=== PATIENT | male | born 1950 | race Caucasian/White ===

== ENCOUNTER 2018-05-23 14:10 | Observation (INO) | payer MEDICARE, BC ==
[~2018-05-23] VITALS: Ht 182.9 cm; Wt 81.0 kg
[~2018-05-23 14:10] MED LIST: BACTRIM DS1 TAB PO; BENAZEPRIL10 MG PO; CEPHALEXIN500 MG PO; DELTASONE20 MG PO; DEPO-MEDROL40 MG/ML IJ; EPITOL200 MG OR; FUROSEMIDE20 MG PO; HYDROCHLOROT25 MG PO; INVEGA1.5 MG OR; LEVAQUIN750 MG PO; LEVOFLOXACIN750 MG PO; LEVOTHYROXIN100 MCG OR; LEVOTHYROXIN100 MCG PO; LEVOTHYROXIN125 MCG PO; LEVOTHYROXIN150 MCG PO; LEVOTHYROXIN200 MC2 PO; LEVOTHYROXIN25 MC1 PO; LISINOP/HCTZ1 TA1 OR; LISINOPRIL10 MG PO; MEDDOSEPAK PO; METOPROLOL TART50 MG PO; POTASSIUM CHLO10 MEQ PO; PREDNISONE20 MG PO; PREDNISONE5 MG PO; SERAQUIL; VANCOMYCIN HCL1 GM IV
[2018-05-23] MEDS ORDERED: FUROSEMIDE40 MG PO (14:28)
[2018-05-23] MEDS ORDERED: TEMAZEPAM15 MG PO (14:29)
[2018-05-23] MEDS ORDERED: LOPRESSOR 550 MG/TAB PO (14:29)
[2018-05-23] MEDS ORDERED: LISINOPRIL20 MG PO (14:30)
[2018-05-23] MEDS ORDERED: TAMSULOSIN HCL0.4 MG PO (14:31)
[2018-05-23] MEDS ORDERED: LEVOTHYROXIN100 MCG PO (14:31)
[2018-05-23 15:12] LABS: HEMOGLOBIN 14.5 g/dl (14.0-18.0); IMMATURE GRANULOCYTES 0.4 % (0.0-5.0); MEAN CELL VOLUME 91.7 fL CALC (80.0-100.0); MEAN CORPUSCULAR HGB 30.9 pG CALC (26.0-32.0); MEAN CORPUSCULAR HGB CONC 33.7 g/L CALC (32.0-36.0); NEUT# 6.31 thou/uL (1.82-7.42); RED BLOOD COUNT 4.69 mill/uL (4.70-6.10)
[2018-05-23 15:24] LABS: ALBUMIN 4.3 g/dL (3.2-5.0); ALKALINE PHOSPHATASE 91 u/l (38-126); ANION GAP 14 (6-22 (CALC)); BILIRUBIN, TOTAL 0.6 mg/dL (0.0-1.4); BUN 18 mg/dL (8-23); BUN/CREATININE RATIO 15 (12-20 (CALC)); CARBON DIOXIDE 29 mmol/l (22-30); CHLORIDE 100 mmol/l (95-108); CREATININE 1.2 mg/dL (0.7-1.3); GFR > 60 ML/MIN (>=60 (CALC)); GFR FOR AFR.AMER. > 60 ML/MIN (>=60 (CALC)); POTASSIUM 3.8 mmol/l (3.5-5.1); SGOT/AST 21 u/l (19-48); SGPT/ALT 25 u/l (11-66); SODIUM 139 mmol/l (137-146); TOTAL PROTEIN 7.8 g/dL (6.3-8.2)
[2018-05-23 17:49] VITALS: BP 154/89
[2018-05-23 17:58] LABS: URINE BILIRUBIN - DIPSTICK NEGATIVE (NEGATIVE); URINE BLOOD DIPSTICK NEGATIVE (NEGATIVE); URINE COLOR YELLOW; URINE GLUCOSE - DIPSTICK NEGATIVE (NEGATIVE); URINE KETONE NEGATIVE (NEGATIVE); URINE LEUK ESTERASE NEGATIVE (NEGATIVE); URINE NITRITE - DIPSTICK NEGATIVE (Negative); URINE PROTEIN - DIPSTICK NEGATIVE (NEG-TRACE); URINE UROBILINOGEN - DIPSTICK 0.2 E.U./dL (0.2)
[2018-05-23 19:21] LABS: URINE CLARITY CLEAR
[2018-05-23 19:44] VITALS: BP 129/61
[2018-05-24 00:30] VITALS: BP 132/69; BP 134/74
[2018-05-24 03:57] VITALS: BP 134/74
[2018-05-24 05:41] LABS: ALBUMIN 3.8 g/dL (3.2-5.0); ALKALINE PHOSPHATASE 85 u/l (38-126); ANION GAP 14 (6-22 (CALC)); BILIRUBIN, TOTAL 0.9 mg/dL (0.0-1.4); BUN 23 mg/dL (8-23); BUN/CREATININE RATIO 17 (12-20 (CALC)); CARBON DIOXIDE 30 mmol/l (22-30); CHLORIDE 99 mmol/l (95-108); CREATININE 1.3 mg/dL (0.7-1.3); GFR 55 ML/MIN (>=60 (CALC)); GFR FOR AFR.AMER. > 60 ML/MIN (>=60 (CALC)); POTASSIUM 3.8 mmol/l (3.5-5.1); SGOT/AST 18 u/l (19-48); SGPT/ALT 24 u/l (11-66); SODIUM 140 mmol/l (137-146); TOTAL PROTEIN 7.2 g/dL (6.3-8.2)
[2018-05-24 06:45] LABS: HEMATOCRIT 43.2 % (39.0-50.0); HEMOGLOBIN 14.4 g/dl (14.0-18.0); IMMATURE GRANULOCYTES 0.4 % (0.0-5.0); MEAN CELL VOLUME 92.5 fL CALC (80.0-100.0); MEAN CORPUSCULAR HGB 30.8 pG CALC (26.0-32.0); MEAN CORPUSCULAR HGB CONC 33.3 g/L CALC (32.0-36.0); NEUT# 4.13 thou/uL (1.82-7.42); RED BLOOD COUNT 4.67 mill/uL (4.70-6.10); RED CELL DISTRI WIDTH 13.2 % (11.5-15.5)
[2018-05-24 08:07] VITALS: BP 120/74
[2018-05-24 08:11] VITALS: BP 120/74
== END 2018-05-24 11:26 | disposition home or self-care (01) ==
LOC: ED 14:10 → ED-I 16:09 → ED 16:27 → MS2 16:28
PROVIDERS: Emergency Medicine; ADMIT Internal Medicine Geriatric Medicine; ATTEND Internal Medicine Geriatric Medicine
DX: I10 Essential (primary) hypertension (principal); F41.1 Generalized anxiety disorder; E89.0 Postprocedural hypothyroidism; F31.9 Bipolar disorder, unspecified; K29.70 Gastritis, unspecified, without bleeding; B19.20 Unspecified viral hepatitis C without hepatic coma; Z91.14 Patient's other noncompliance with medication regimen; R07.89 Other chest pain

== ENCOUNTER 2021-12-03 18:53 | Emergency (ER) | payer MEDICARE, BC ==
[~2021-12-03 18:53] MED LIST changes: +ALL DAY10 MG PO; +ALPRAZOLAM ER0.5 MG PO; +AMLODIPINE BESYL5 MG PO; +B121000 MC1; +CIALIS10 MG PO; +D350 MCG; +FUROSEMIDE40 MG PO; +LISINOPRIL20 MG PO; +LOPRESSOR 550 MG/TAB PO; +RISPERDAL1 M1 PO; +TAMSULOSIN HCL0.4 MG PO; +TEMAZEPAM15 MG PO
[2021-12-03] MEDS ORDERED: TAMSULOSIN HYD0.4 MG PO (23:36)
[2021-12-03] MEDS ORDERED: LISINOPRIL10 MG PO (23:37)
[2021-12-03] MEDS ORDERED: LEVOTHYROXIN50 MCG PO (23:42)
== END 2021-12-03 21:02 | disposition left against medical advice (07) ==
LOC: ED 18:53 → LWOBS 20:07
DX: Z53.21 Procedure and treatment not carried out due to patient leaving prior to being seen by health care provider (principal)

== ENCOUNTER 2021-12-03 21:52 | Emergency (ER) | payer MEDICARE, BC ==
[~2021-12-03] VITALS: Ht 185.4 cm; Wt 97.0 kg
[~2021-12-03 21:52] MED LIST changes: -B121000 MC1; +B121000 MC1 PO; -D350 MCG; +D350 MCG PO
[2021-12-03 22:38] LABS: HEMATOCRIT 48.3 % (39.0-50.0); HEMOGLOBIN 15.8 g/dl (14.0-18.0); IMMATURE GRANULOCYTES 0.2 % (0.0-5.0); MEAN CELL VOLUME 92.5 fL CALC (80.0-100.0); MEAN CORPUSCULAR HGB 30.3 pG CALC (26.0-32.0); MEAN CORPUSCULAR HGB CONC 32.7 g/dL CAL (32.0-36.0); NEUT# 11.48 thou/uL (1.82-7.42); RED BLOOD COUNT 5.22 mill/uL (4.70-6.10); RED CELL DISTRI WIDTH 13.4 % (11.5-15.5)
[2021-12-03 22:43] LABS: ALBUMIN 4.3 g/dL (3.2-5.0); ANION GAP 17 (6-22 (CALC)); BUN 10 mg/dL (8-23); BUN/CREATININE RATIO 10 (12-20 (CALC)); CARBON DIOXIDE 24 mmol/l (22-30); CHLORIDE 100 mmol/l (95-108); GFR > 60 ML/MIN (>=60 (CALC)); GFR FOR AFR.AMER. > 60 ML/MIN (>=60 (CALC)); LIPASE 83 u/l (23-300); MAGNESIUM 1.7 mg/dL (1.6-2.3); POTASSIUM 3.9 mmol/l (3.5-5.1); SODIUM 137 mmol/l (137-146); TOTAL PROTEIN 7.8 g/dL (6.3-8.2)
[2021-12-03 22:51] LABS: ALKALINE PHOSPHATASE 257 u/l (38-126); BILIRUBIN, TOTAL 3.1 mg/dL (0.0-1.4); SGOT/AST 928 u/l (19-48)
[2021-12-03 22:55] LABS: MYOGLOBIN 42 ng/mL (0 - 121)
[2021-12-03 23:00] VITALS: BP 167/92
[2021-12-03 23:31] VITALS: BP 140/92
[2021-12-03 23:33] VITALS: BP 179/92
[2021-12-03] MEDS ORDERED: TAMSULOSIN HYD0.4 MG PO (23:36)
[2021-12-03] MEDS ORDERED: LISINOPRIL10 MG PO (23:37)
[2021-12-03] MEDS ORDERED: LEVOTHYROXIN50 MCG PO (23:42)
[2021-12-03 23:54] VITALS: BP 161/97
[2021-12-03 23:58] LABS: URINE BILIRUBIN - DIPSTICK NEGATIVE (NEGATIVE); URINE BLOOD DIPSTICK NEGATIVE (NEGATIVE); URINE COLOR YELLOW; URINE GLUCOSE - DIPSTICK NEGATIVE (NEGATIVE); URINE KETONE NEGATIVE (NEGATIVE); URINE LEUK ESTERASE NEGATIVE (NEGATIVE); URINE PROTEIN - DIPSTICK NEGATIVE (NEG-TRACE)
[2021-12-04] VITALS (15 sets, daily range): BP systolic 152–181; BP diastolic 76–101
[2021-12-04 00:09] LABS: URINE NITRITE - DIPSTICK NEGATIVE (Negative)
== END 2021-12-04 05:40 | disposition short-term general hospital (02) ==
LOC: ED 21:52
PROVIDERS: Emergency Medicine
DX: K83.09 Other cholangitis (principal); I10 Essential (primary) hypertension; E03.9 Hypothyroidism, unspecified; B19.20 Unspecified viral hepatitis C without hepatic coma; E05.00 Thyrotoxicosis with diffuse goiter without thyrotoxic crisis or storm; F17.200 Nicotine dependence, unspecified, uncomplicated

== ENCOUNTER 2021-12-11 08:05 | Day surgery (SDC) | payer MEDICARE, BC ==
[~2021-12-11] VITALS: Ht 185.4 cm; Wt 97.5 kg
[~2021-12-11 08:05] MED LIST changes: +LEVOTHYROXIN50 MCG PO; +TAMSULOSIN HYD0.4 MG PO
[2021-12-11] MEDS ORDERED: PERCOCET 5/321 COMBO PO (10:44)
[2021-12-11 12:05] VITALS: BP 136/70
== END 2021-12-11 12:00 | disposition home or self-care (01) ==
LOC: ORM 08:05
PROVIDERS: ATTEND Surgery
PROC: 0FT44ZZ Resection of Gallbladder, Percutaneous Endoscopic Approach (ICD-10-PCS; principal; 2021-12-11)
PROC: 0WQF0ZZ Repair Abdominal Wall, Open Approach (ICD-10-PCS; 2021-12-11)
DX: K42.9 Umbilical hernia without obstruction or gangrene (principal); K81.1 Chronic cholecystitis; I10 Essential (primary) hypertension; K57.30 Diverticulosis of large intestine without perforation or abscess without bleeding; E03.9 Hypothyroidism, unspecified; E78.5 Hyperlipidemia, unspecified
CPT/HCPCS: J0131; J1100; J1610; Q9967

== ENCOUNTER 2024-09-01 14:01 | Emergency (ER) | payer MEDICARE, BC ==
[~2024-09-01] VITALS: Ht 185.4 cm; Wt 90.7 kg
[~2024-09-01 14:01] MED LIST changes: +PERCOCET 5/321 COMBO PO
[2024-09-01 15:05] VITALS: BP 145/69
[2024-09-01] MEDS ORDERED: FUROSEMIDE 40 MG/4 ML SDV IV ONE (15:10)
[2024-09-01 15:18] LABS: HEMATOCRIT 37.2 % (39.0-50.0); HEMOGLOBIN 11.9 g/dl (14.0-18.0); MEAN CELL VOLUME 95.4 fL CALC (80.0-100.0); MEAN CORPUSCULAR HGB 30.5 pG CALC (26.0-32.0); PLATELET COUNT 248 thou/uL (130-400); RED CELL DISTRI WIDTH 16.1 % (11.5-15.5)
[2024-09-01 15:24] LABS: MANUAL DIFFERENTIAL YES
[2024-09-01 15:34] LABS: ALBUMIN 3.7 g/dL (3.2-5.0); BILIRUBIN, TOTAL 0.5 mg/dL (0.2-1.3); CREATININE 1.1 mg/dL (0.7-1.3); POTASSIUM 4.4 mmol/l (3.5-5.1); TOTAL PROTEIN 6.5 g/dL (6.3-8.2)
[2024-09-01 15:45] LABS: BAND 7 % (0-8)
[2024-09-01 15:46] LABS: PLATELET ESTIMATE NORMAL
[2024-09-01] MEDS ORDERED: LASIX 40 MG TAB40 MG PO (17:06)
[2024-09-01 17:20] VITALS: BP 158/72
== END 2024-09-01 17:21 | disposition home or self-care (01) ==
LOC: ED 14:01
PROVIDERS: Family Medicine
DX: R60.0 Localized edema (principal); L03.115 Cellulitis of right lower limb; I10 Essential (primary) hypertension; B19.20 Unspecified viral hepatitis C without hepatic coma; E05.00 Thyrotoxicosis with diffuse goiter without thyrotoxic crisis or storm; F41.9 Anxiety disorder, unspecified; F32.A Depression, unspecified; Z96.641 Presence of right artificial hip joint